=== PATIENT | female | born 1935 | race African-American/Black ===

== ENCOUNTER 2017-03-02 17:15 | Emergency (ER) | payer MEDICARE ==
[2017-03-02 17:21] VITALS: BP 145/65; PULSE 71; RESP 18; TEMP 99.4
--- NOTE | 2017-03-02 17:28 | ED ---
Lower Extremity Injury HPI - General Chief Complaint: Extremity Injury, Lower Stated Complaint: right ankle pain Time Seen by Provider: 03/02/17 17:24 Source: patient, RN notes reviewed Mode of arrival: wheelchair Limitations: no limitations - History of Present Illness Initial Comments: 81-year-old female presents emergency Department chief complaint of right ankle injury. She states her says a fall she tried to catch him and she may have twisted her ankle or he fell onto her right ankle. She states it is too painful to ambulate. She denies any pain or proximal leg or towards her knee. She denies any foot pain. She's had no prior fractures to her right ankle. - Related Data Home Medications Medication Instructions Recorded Confirmed Aspirin 81 mg PO DAILY 02/23/14 02/23/14 Budesonide/Formoterol Fumarate 1 puff INHALATION DIRECTED PRN 02/23/14 [Symbicort 80-4.5 Mcg Inhaler] Calcium Citrate/Vitamin D3 1 tab PO DAILY 02/23/14 02/23/14 [Calcium Citrate - Vit D3 Tab] Levothyroxine Sodium [Levoxyl] 50 mcg PO DAILY 02/23/14 02/23/14 Losartan [Cozaar] 50 mg PO BID 02/23/14 02/23/14 Magnesium Oxide [Mag-Ox] 250 mg PO DAILY 02/23/14 02/23/14 Multivitamins, Thera [Multivitamin] 1 tab PO DAILY 02/23/14 02/23/14 [place]-3 Fatty Acids [[place]-3] 1,000 mg PO DAILY 02/23/14 02/23/14 Simvastatin [Zocor] 20 mg PO DAILY 02/23/14 02/23/14 Allergies Allergy/AdvReac Type Severity Reaction Status Date / Time latex Allergy Rash/Hives Verified 03/02/17 17:21 Review of Systems ROS Statement: Those systems with pertinent positive or pertinent negative responses have been documented in the HPI. ROS Other: All systems not noted in ROS Statement are negative. Past Medical History Past Medical History: Asthma, Hyperlipidemia, Hypertension, Thyroid Disorder History of Any Multi-Drug Resistant Organisms: None Reported Past Surgical History: Hysterectomy Additional Past Surgical History / Comment(s): thyroidectomy Past Psychological History: No Psychological Hx Reported Smoking Status: Never smoker Past Alcohol Use History: None Reported Past Drug Use History: None Reported General Exam Limitations: no limitations General appearance: alert, in no apparent distress Cardiovascular Exam: Present: regular rate, normal rhythm, normal heart sounds. Absent: systolic murmur, diastolic murmur, rubs, gallop, clicks GI/Abdominal exam: Present: soft, normal bowel sounds. Absent: distended, tenderness, guarding, rebound, rigid Extremities exam: Present: other (Right ankle there is tenderness and some swelling noted to the lateral malleolus neurovascular intact there is no foot tenderness and no proximal tib-fib tenderness) Skin exam: Present: warm, dry, intact, normal color. Absent: rash Course Vital Signs 03/02/17 17:18 Temperature 99.4 F Pulse Rate 71 Respiratory 18 Rate Blood Pressure 145/65 O2 Sat by Pulse 100 Oximetry Procedures - Orthopedic Splinting/Casting Injury #1 Side: right Lower Extremity Injury Location: ankle Lower Extremity Immobilizer: posterior splint (Short leg neurovascular intact before and after procedure.) Other Orthopedic Equipment: walker Medical Decision Making - Medical Decision Making 81-year-old female presented emergency from for right ankle pain. Patient has a right fibular fracture. Patient was placed in a short leg splint and follow- up with orthopedics. Disposition Clinical Impression: Leg fracture, right Disposition: HOME SELF-CARE Condition: Stable Instructions: Leg Fracture (ED) Additional Instructions: Please return to the Emergency Department if symptoms worsen or any other concerns. Referrals: Jose Maria Velazquez MD [Primary Care Provider] - 1-2 days Alf Skelton MD [Medical Doctor] - 1-2 days Time of Disposition: 17:47
--- NOTE | 2017-03-02 18:10 | XR ---
PROCEDURE: XR ankle complete RT DATE AND TIME: 03/02/2017 5:42 PM REFERRING PHYSICIAN: Jose Henley CLINICAL INDICATION: PHH, Pain TECHNIQUE: Department protocol. COMPARISON: None FINDINGS: A minimally anteriorly-displaced oblique fracture of the distal fibular shaft, at the upper tibiofibu lar syndesmosis level. At the lower tibia fibula syndesmosis level there is evidence of a minimal syn desmotic avulsion off the tibia. There is associated lateral soft tissue swelling. The mortise is intact. The distal tibia and the skeletal structures of the hindfoot and midfoot are u nremarkable. IMPRESSION: FIBULAR FRACTURE DETAILED, WITH INVOLVEMENT OF THE SYNDESMOSIS.
== END 2017-03-02 18:30 | disposition home or self-care (01) ==
LOC: EC 17:15
DX: S82.401A Unspecified fracture of shaft of right fibula, initial encounter for closed fracture (principal); E78.5 Hyperlipidemia, unspecified; I10 Essential (primary) hypertension; E07.9 Disorder of thyroid, unspecified; Z98.890 Other specified postprocedural states; Z79.82 Long term (current) use of aspirin; Z79.899 Other long term (current) drug therapy; Z91.040 Latex allergy status; W19.XXXA Unspecified fall, initial encounter
CPT/HCPCS: 29515; 99283